=== PATIENT | female | born 1980 | race Two or more races ===

== ENCOUNTER → 2021-05-14 | Outpatient (CLI) | payer OTHER ==
[~2021-05-14] MED LIST: IOHEXOL 300 MG/ML 100ML VIAL. IV ONE
--- NOTE | 2021-05-14 12:52 | KCIC ---
EXAM: CT Chest with IV contrast CLINICAL HISTORY: Reason: Left supraclavicular mass for 6 wks. / Spl. Instructions: 95mL Omni 300 / H istory: Evaluate for supraclavicular or thoracic lymphadenopathy.. COMPARISON: None. TECHNIQUE: CT of the chest following the administration of intravenous contrast. Axial, coronal and s agittal reformatted images were generated. ---PQRS compliance statement - One or more of the following individualized dose reduction techniques were utilized for this study: 1. Automated exposure control 2. Adjustment of the mA and/or kV according to patient size 3. Use of iterative reconstruction technique--- FINDINGS: CHEST: Heart is not enlarged. No pericardial effusion. No pleural effusion. No pneumothorax. No axillary lymphadenopathy. No mediastinal or hilar lymphadenopathy. Anterior mediastinal soft tissu e density likely residual thymus. No suspicious lung nodule or mass is seen. The supraclavicular mass described history is not convinci ngly seen on this CT although may be obscured by streak artifact from contrast in left subclavian vei n. Visualized Upper abdomen: Cholecystectomy clips are seen. Moderate colonic stool content. Bones: No aggressive osseous lesion is seen. IMPRESSION: 1. No thoracic lymphadenopathy or lung mass. 2. The supraclavicular mass described in the clinical history is not definitively seen although may be obscured given streak artifact from contrast in the left subclavian vein. Electronically signed by: Jadon Espinal MD (05/14/2021 12:49 PM) [id number]
== END ==
LOC: KCIC CT 08:54
PROVIDERS: ATTEND Family Medicine
DX: R22.2 Localized swelling, mass and lump, trunk (principal); Z90.49 Acquired absence of other specified parts of digestive tract
CPT/HCPCS: 71260; Q9967